=== PATIENT | male | born 1950 | race Caucasian/White ===

== ENCOUNTER 2023-07-15 14:39 | Inpatient (IN) | payer MEDICARE, OTHER ==
[~2023-07-15] VITALS: Ht 170.2 cm; Wt 61.7 kg
[2023-07-15] MEDS ORDERED: LORAZEPAM 0.5 MG TABLET PO PRN (20:30)
[2023-07-15] MEDS ORDERED: TEMAZEPAM 7.5 MG CAPSULE PO PRN (20:30)
[2023-07-15] MEDS ORDERED: MAG HYDROX/AL HYDROX/SIMETH 30 ML UDC PO PRN (20:30)
[2023-07-15] MEDS ORDERED: MAGNESIUM HYDROXIDE 30 ML UDC PO PRN (20:30)
[2023-07-15] MEDS ORDERED: BLOOD SUGAR DIAGNOSTIC 1 EACH STRIP IN ONE (21:00)
[2023-07-15 21:25] VITALS: BP 140/82; TEMP 100
[2023-07-15] MEDS: ACETAMINOPHEN 325 MG TABLET PO PRN ×2 (21:26→21:30)
[2023-07-15] MEDS ORDERED: DEXTROSE 50%-WATER 50 ML DISP.SYRIN IV PRN (21:30)
[2023-07-16 01:18] VITALS: BP 135/86; TEMP 99.2
[2023-07-16] MEDS: BLOOD SUGAR DIAGNOSTIC 1 EACH STRIP IN SCH ×4 (07:30→22:00)
[2023-07-16] MEDS: GLUCERNA SHAKE 237 ML CAN PO SCH ×2 (07:57→16:44)
[2023-07-16] MEDS ORDERED: OLANZAPINE 10 MG VIAL IM ONE (10:00)
[2023-07-16] MEDS ORDERED: OLANZAPINE ZYDIS 5 MG TAB.RAPDIS PO PRN (13:30)
[2023-07-16 16:00] VITALS: BP 141/95; TEMP 98.1; O2SAT 94
[2023-07-16 20:34] VITALS: BP 120/77; TEMP 98; O2SAT 98
[2023-07-16] MEDS: OLANZAPINE ZYDIS 5 MG TAB.RAPDIS PO SCH (21:00)
[2023-07-16] MEDS: LATANOPROST EYE DROP 0.005% 2.5 ML BOTTLE RIGHTEYE SCH (22:00)
[2023-07-17] MEDS: GLUCERNA SHAKE 237 ML CAN PO SCH ×2 (08:00→17:00)
[2023-07-17 08:03] VITALS: BP 111/72; TEMP 97.9; O2SAT 98
[2023-07-17] MEDS: INSULIN REGULAR, HUMAN 100 UNIT/ML 3 ML VIAL SQ PRN (08:36)
[2023-07-17] MEDS: BLOOD SUGAR DIAGNOSTIC 1 EACH STRIP IN SCH ×4 (08:37→22:00)
[2023-07-17] MEDS: OLANZAPINE ZYDIS 5 MG TAB.RAPDIS PO SCH ×4 (09:35→21:00)
[2023-07-17 16:00] VITALS: BP 129/75; TEMP 98.7; O2SAT 97
[2023-07-17] MEDS: LATANOPROST EYE DROP 0.005% 2.5 ML BOTTLE RIGHTEYE SCH (22:00)
[2023-07-18] MEDS: BLOOD SUGAR DIAGNOSTIC 1 EACH STRIP IN SCH ×4 (07:30→21:50)
[2023-07-18] MEDS: GLUCERNA SHAKE 237 ML CAN PO SCH ×2 (08:00→16:55)
[2023-07-18] MEDS: OLANZAPINE ZYDIS 5 MG TAB.RAPDIS PO SCH ×3 (08:00→20:47)
[2023-07-18] MEDS ORDERED: OLANZAPINE 10 MG VIAL IM STA (09:14)
[2023-07-18] MEDS: LATANOPROST EYE DROP 0.005% 2.5 ML BOTTLE RIGHTEYE SCH (21:14)
[2023-07-19] MEDS: BLOOD SUGAR DIAGNOSTIC 1 EACH STRIP IN SCH ×2 (06:51→11:44)
[2023-07-19] MEDS: OLANZAPINE ZYDIS 5 MG TAB.RAPDIS PO SCH ×3 (07:11→20:32)
[2023-07-19] MEDS: GLUCERNA SHAKE 237 ML CAN PO SCH ×2 (07:28→16:23)
[2023-07-19 08:00] VITALS: BP 108/60; TEMP 98; O2SAT 95
[2023-07-19 08:09] LABS: BASOPHILS # (AUTO) 0.1 K/uL (0.0-0.2); BASOPHILS % (AUTO) 0.8 % (0.0-2.0); EOSINOPHILS # (AUTO) 0.3 K/uL (0.0-0.7); EOSINOPHILS % (AUTO) 4.2 % (0.0-6.0); HEMATOCRIT 42 % (39-51); HEMOGLOBIN 13.4 g/dL (13.5-17.5); MEAN CORPUSCULAR HEMOGLOBIN 31 PG (26.0-33.0); MEAN CORPUSCULAR HGB CONC 32 g/dl (31.0-36.0); MEAN CORPUSCULAR VOLUME 97 fL (80-96); MONOCYTES # (AUTO) 1.1 K/uL (0.1-1.30); NEUTROPHILS # (AUTO) 4.7 K/uL (1.8-8.9); PLATELET COUNT (AUTO) 348 K/uL (150-450); RED BLOOD CELL COUNT(AUTO) 4.31 MIL/uL (4.5-6.0); RED CELL DISTRIBUTION WIDTH 13.8 % (11.5-15.0); WHITE BLOOD COUNT (AUTO) 8.1 K/uL (4.3-11.0)
[2023-07-19 09:33] LABS: ALBUMIN 3.4 g/dL (3.4-5.0); BILIRUBIN,TOTAL 0.4 mg/dL (0.2-1.0); CALCIUM, SERUM 9.4 mg/dL (8.5-10.1); CREATININE 1.3 mg/dL (0.6-1.3); POTASSIUM 4.7 mmol/L (3.5-5.1); TOTAL PROTEIN, SERUM 7.4 g/dL (6.4-8.2)
[2023-07-19] MEDS: acetaZOLAMIDE 250 MG TABLET PO SCH (11:00)
[2023-07-19] MEDS: INSULIN REGULAR, HUMAN 100 UNIT/ML 3 ML VIAL SQ PRN (11:44)
[2023-07-19] MEDS: TIMOLOL 0.5% SOLN OPHTH 5 ML BOTTLE RIGHTEYE SCH (16:24)
[2023-07-19 20:00] VITALS: BP 127/81; TEMP 98.1; O2SAT 95
[2023-07-19] MEDS: LATANOPROST EYE DROP 0.005% 2.5 ML BOTTLE RIGHTEYE SCH (22:00)
[2023-07-20 08:00] VITALS: BP 133/75; TEMP 98; O2SAT 95
[2023-07-20] MEDS: GLUCERNA SHAKE 237 ML CAN PO SCH ×2 (09:08→17:21)
[2023-07-20] MEDS: risperiDONE 1 MG TABLET PO SCH ×2 (09:23→16:20)
[2023-07-20] MEDS: acetaZOLAMIDE 250 MG TABLET PO SCH (09:23)
[2023-07-20] MEDS: TIMOLOL 0.5% SOLN OPHTH 5 ML BOTTLE RIGHTEYE SCH ×2 (09:23→16:20)
[2023-07-20 16:00] VITALS: BP 124/55; TEMP 98; O2SAT 95
[2023-07-20 20:00] VITALS: BP 101/59; TEMP 98.1; O2SAT 98
[2023-07-20] MEDS: LATANOPROST EYE DROP 0.005% 2.5 ML BOTTLE RIGHTEYE SCH (21:46)
[2023-07-20 23:34] VITALS: BP 101/59; TEMP 98.1; O2SAT 98
[2023-07-21 08:00] VITALS: BP 94/70; TEMP 97.7; O2SAT 94
[2023-07-21] MEDS: acetaZOLAMIDE 250 MG TABLET PO SCH (08:20)
[2023-07-21] MEDS: risperiDONE 1 MG TABLET PO SCH ×2 (08:20→17:20)
[2023-07-21] MEDS: GLUCERNA SHAKE 237 ML CAN PO SCH ×2 (08:20→17:20)
[2023-07-21] MEDS: TIMOLOL 0.5% SOLN OPHTH 5 ML BOTTLE RIGHTEYE SCH ×2 (08:33→17:20)
[2023-07-21 16:00] VITALS: BP 116/79; TEMP 98; O2SAT 99
[2023-07-21 20:19] VITALS: BP 133/69; TEMP 98.1; O2SAT 95
[2023-07-21] MEDS: LATANOPROST EYE DROP 0.005% 2.5 ML BOTTLE RIGHTEYE SCH ×2 (21:29→21:31)
[2023-07-22] MEDS: GLUCERNA SHAKE 237 ML CAN PO SCH ×2 (07:54→17:25)
[2023-07-22 08:00] VITALS: BP 119/76; TEMP 97.6; O2SAT 95
[2023-07-22] MEDS: TIMOLOL 0.5% SOLN OPHTH 5 ML BOTTLE RIGHTEYE SCH ×2 (08:07→16:09)
[2023-07-22] MEDS: acetaZOLAMIDE 250 MG TABLET PO SCH (08:08)
[2023-07-22] MEDS: risperiDONE 1 MG TABLET PO SCH ×2 (08:08→16:09)
[2023-07-22 16:00] VITALS: BP 107/64; TEMP 98.1; O2SAT 100
[2023-07-22 20:22] VITALS: BP 109/76; TEMP 97.9; O2SAT 98
[2023-07-22] MEDS: LATANOPROST EYE DROP 0.005% 2.5 ML BOTTLE RIGHTEYE SCH (21:11)
[2023-07-23 08:00] VITALS: BP 127/89; TEMP 98.6; O2SAT 99
[2023-07-23] MEDS: GLUCERNA SHAKE 237 ML CAN PO SCH ×2 (08:05→16:45)
[2023-07-23] MEDS: TIMOLOL 0.5% SOLN OPHTH 5 ML BOTTLE RIGHTEYE SCH ×2 (08:06→16:46)
[2023-07-23] MEDS: risperiDONE 1 MG TABLET PO SCH ×2 (08:47→16:45)
[2023-07-23 16:00] VITALS: BP 114/75; TEMP 98.1; O2SAT 100
[2023-07-23 20:25] VITALS: BP 123/76; TEMP 98.2; O2SAT 99
[2023-07-23] MEDS: LATANOPROST EYE DROP 0.005% 2.5 ML BOTTLE RIGHTEYE SCH (21:06)
[2023-07-24 08:00] VITALS: BP 117/70; TEMP 98.2; O2SAT 100
[2023-07-24] MEDS: risperiDONE 1 MG TABLET PO SCH (08:12)
[2023-07-24] MEDS: TIMOLOL 0.5% SOLN OPHTH 5 ML BOTTLE RIGHTEYE SCH ×2 (08:14→08:20)
[2023-07-24] MEDS: GLUCERNA SHAKE 237 ML CAN PO SCH (08:20)
== END 2023-07-24 14:00 | DRG 885 ==
LOC: GPS 18:55
PROVIDERS: ADMIT Psychiatry & Neurology Psychosomatic Medicine; ATTEND Nurse Practitioner Acute Care
DX: F29 Unspecified psychosis not due to a substance or known physiological condition (principal); Z59.00 Homelessness unspecified; F32.3 Major depressive disorder, single episode, severe with psychotic features; F12.90 Cannabis use, unspecified, uncomplicated; H40.9 Unspecified glaucoma; H54.62 Unqualified visual loss, left eye, normal vision right eye; Z73.6 Limitation of activities due to disability
CPT/HCPCS: 36415; 80053-TC; 82962-TC; 85025-TC; 97112-TC; 97116-TC; J1815; J3490